=== PATIENT | male | born 1985 | race Caucasian/White ===

== ENCOUNTER 2017-06-08 10:20 | Emergency (ER) | payer OTHER ==
[~2017-06-08] VITALS: Ht 175.3 cm; Wt 72.6 kg
[2017-06-08 10:20] VITALS: BP_SYST 170
--- NOTE | 2017-06-08 10:25 | NUR ---
Patient triaged and placed in waiting room. VSS and patient appears in no acute distress at this time. Accompanied by SELF, awaiting available bed, and MD notified of need for MSE.
--- NOTE | 2017-06-08 10:36 | NUR ---
BROUGHT BACK TO BED #3 AND REPORT GIVEN TO LOUIE
--- NOTE | 2017-06-08 10:40 | NUR ---
Pt complains of pain to left rib, states he was lifting a drill at work and felt "excruciating" pain. Pt denies falling. Pt denies fever, n/v or diarrhea. Pt states has pain when breathing in. Pt ambulated to ER with no difficulties. Pt was able to communicate in full sentences and 02 sat is 98% on room air. No other injuries/complaints per pt or noted.
--- NOTE | 2017-06-08 10:50 | NUR ---
ER at bedside examining patient.
--- NOTE | 2017-06-08 11:28 | NUR ---
Pt went to Radiology in stable condition.
[2017-06-08 11:35] LABS: BASOPHILS % (AUTO) 0.8 % (0.0-2.0); EOSINOPHILS % (AUTO) 0.2 % (0.0-4.0); HEMATOCRIT 44.6 % (36-54); LYMPHOCYTES # (AUTO) 0.8 K/uL (1.0-5.5); LYMPHOCYTES % (AUTO) 15.1 % (20.5-51.5); MEAN CORPUSCULAR HEMOGLOBIN 33 pg (27-31); MEAN CORPUSCULAR HGB CONC 34 % (32-36); MEAN CORPUSCULAR VOLUME 99 fL (79.0-98.0); MONOCYTES # (AUTO) 0.3 K/uL (0.0-1.0); MONOCYTES % (AUTO) 6.3 % (1.7-9.3); NEUTROPHILS # (AUTO) 4.1 K/uL (1.8-7.7); NEUTROPHILS % (AUTO) 77.6 % (40.0-70.0); PLATELET COUNT (AUTO) 264 K/uL (130-430); RED BLOOD CELL COUNT(AUTO) 4.49 MIL/uL (4.2-6.2); RED CELL DISTRIBUTION WIDTH 17.4 % (9.0-15.0); WHITE BLOOD COUNT (AUTO) 5.2 K/uL (4.8-10.8)
--- NOTE | 2017-06-08 11:36 | NUR ---
Pt returned from Radiology in stable condition.
[2017-06-08 11:43] LABS: PROTHROMBIN TIME 10.9 SECS (9.5-12.5)
[2017-06-08 11:47] LABS: CALCIUM 9.9 mg/dL (8.4-11.0); CREATININE 0.92 mg/dL (0.55-1.30); POTASSIUM 3.7 mmol/L (3.5-5.1)
[2017-06-08 11:52] LABS: ALBUMIN 4.6 g/dL (3.4-4.8); TOTAL BILIRUBIN 0.7 mg/dL (0.0-1.0)
--- NOTE | 2017-06-08 12:44 | NUR ---
Pt on stable condition, VS WNL
--- NOTE | 2017-06-08 12:54 | NUR ---
Patient given written and verbal discharge instructions and verbalizes understanding. ER MD discussed with patient the results and treatment provided. Patient in stable condition. ID arm band removed. No Rx given. Patient educated on pain management and to follow up with PMD. Pain Scale 0. Opportunity for questions provided and answered.
[2017-06-08 13:02] VITALS: BP_SYST 150
== END 2017-06-08 12:54 | disposition home or self-care (01) ==
LOC: SED 10:20
DX: R07.89 Other chest pain (principal); K70.10 Alcoholic hepatitis without ascites
CPT/HCPCS: 36415; 71020-TC; 80053; 84484; 85025; 85379; 85610-TC; 85730-TC; 93005; 99285

== ENCOUNTER 2019-12-25 16:21 | Emergency (ER) | payer BC, OTHER ==
[~2019-12-25] VITALS: Ht 165.1 cm; Wt 61.2 kg
[2019-12-25 16:21] VITALS: BP_SYST 146
== END 2019-12-25 16:36 | disposition left against medical advice (07) ==
LOC: SED 16:21
DX: F10.129 Alcohol abuse with intoxication, unspecified (principal); Y90.9 Presence of alcohol in blood, level not specified
CPT/HCPCS: 99283